=== PATIENT | male | born 1990 | race Caucasian/White ===

== ENCOUNTER 2021-05-09 23:15 | Emergency (ER) | payer OTHER ==
[~2021-05-09] VITALS: Ht 180.3 cm; Wt 94.8 kg
[2021-05-09 23:16] VITALS: BP 133/78
[2021-05-10 03:17] LABS: BASO % 0.3 % (0.0-1.0); EOS # 0.1 10^3/uL (0.0-0.5); EOS % 0.4 % (0.0-3.0); HEMATOCRIT 48.2 % (42.0-52.0); HEMOGLOBIN 16.3 g/dl (13.5-17.5); LYMPH # 2.3 10^3/uL (1.5-5.0); LYMPH % 16.6 % (24.0-44.0); MEAN CORPUSCULAR HEMOGLOBIN 30.5 pg (27.0-33.0); MEAN CORPUSCULAR HGB CONC 33.8 g/dl (32.0-36.5); MEAN CORPUSCULAR VOLUME 90.3 fl (80.0-96.0); MONO # 0.6 10^3/uL (0.0-0.8); MONO % 4.7 % (2.0-8.0); NEUTROPHILS # 10.6 10^3/uL (1.5-8.5); NEUTROPHILS % 77.6 % (36.0-66.0); PLATELET COUNT, AUTOMATED 290 10^3/uL (150-450); RED BLOOD COUNT 5.34 10^6/uL (4.30-6.10); WHITE BLOOD COUNT 13.6 10^3/uL (4.0-10.0)
[2021-05-10 03:45] LABS: ALBUMIN 4.2 GM/DL (3.2-5.2); ALT/SGPT 35 U/L (12-78); BILIRUBIN,DIRECT 0.1 MG/DL (0.0-0.2); BILIRUBIN,TOTAL 0.5 MG/DL (0.2-1.0); BLOOD UREA NITROGEN 14 MG/DL (7-18); CALCIUM LEVEL 9.2 MG/DL (8.5-10.1); CARBON DIOXIDE LEVEL 33 MEQ/L (21-32); CHLORIDE LEVEL 102 MEQ/L (98-107); CREATININE FOR GFR 0.94 MG/DL (0.70-1.30); GLOMERULAR FILTRATION RATE > 60.0 (>60); GLUCOSE, FASTING 112 MG/DL (70-100); LIPASE 62 U/L (73-393); POTASSIUM SERUM 4.8 MEQ/L (3.5-5.1); SODIUM LEVEL 139 MEQ/L (136-145); TOTAL PROTEIN 7.7 GM/DL (6.4-8.2)
[2021-05-10 05:29] LABS: RSV AMPLIFICATION NEGATIVE (NEGATIVE)
== END 2021-05-10 06:32 | disposition home or self-care (01) ==
LOC: M ED 23:15
DX: T62.91XA Toxic effect of unspecified noxious substance eaten as food, accidental (unintentional), initial encounter (principal); Y92.9 Unspecified place or not applicable; Y93.9 Activity, unspecified